=== PATIENT | female | born 1950 | race Caucasian/White ===

== ENCOUNTER 2018-06-14 16:35 | Emergency (ER) | payer OTHER ==
[~2018-06-14] VITALS: Ht 167.6 cm; Wt 63.0 kg
[~2018-06-14 16:35] MED LIST: BOSWELLIA SERRAT1 GM PO; CRANBERRY500 M1 PO; FOLIC ACID1 MG PO; IODINE STRONG100 ML PO; L-LYSINE500 M1 PO; MAGNESIUM 300300 MG PO; NOHOMEMEDICATIONS; VITAMIN B-12500 MCG PO; VITAMIN D35000 UNIT PO; [UNRECOGNIZED DRUG - OTHER] PO; [UNRECOGNIZED DRUG - OTHER] PO
[2018-06-14] MEDS ORDERED: PROBIOTIC1 EAC1 PO (16:46)
[2018-06-14] MEDS ORDERED: TUMS PO (16:46)
== END 2018-06-14 18:28 | disposition home or self-care (01) ==
LOC: ER 16:35
DX: S40.862A Insect bite (nonvenomous) of left upper arm, initial encounter (principal); S60.861A Insect bite (nonvenomous) of right wrist, initial encounter; W57.XXXA Bitten or stung by nonvenomous insect and other nonvenomous arthropods, initial encounter; Y93.89 Activity, other specified; Y92.89 Other specified places as the place of occurrence of the external cause; Y99.8 Other external cause status; K21.9 Gastro-esophageal reflux disease without esophagitis; Z90.710 Acquired absence of both cervix and uterus; Z85.3 Personal history of malignant neoplasm of breast; Z88.1 Allergy status to other antibiotic agents

== ENCOUNTER → 2018-08-05 | Outpatient (CLI) | payer OTHER ==
[~2018-08-05] MED LIST changes: +PROBIOTIC1 EAC1 PO; +TUMS PO
== END ==
LOC: NUC 08:41
DX: N91.2 Amenorrhea, unspecified (principal); Z78.0 Asymptomatic menopausal state